=== PATIENT | male | born 1960 | race Caucasian/White ===

== ENCOUNTER → 2016-05-01 | Outpatient (CLI) | payer OTHER ==
--- NOTE | 2016-05-01 16:18 | CT ---
EXAMINATION TYPE: CT ChestAbdPelvis w con DATE OF EXAM: 05/01/2016 4:05 PM COMPARISON: 12/13/2015, 07/23/2015 HISTORY: Colon cancer follow-up exam CT DLP: 1843.6 mGycm Automated exposure control for dose reduction was used. CONTRAST: CT scan of the chest, abdomen and pelvis is performed with Oral Contrast and with IV Contrast, patien t injected with 100 mL of Omnipaque 300. FINDINGS: LUNGS: The lungs are grossly clear, there is no concerning parenchymal mass or nodule identified. T here is no pleural effusion or pneumothorax seen. The tracheobronchial tree is patent. MEDIASTINUM: There are no greater than 1 cm hilar or mediastinal lymph nodes. No pericardial effusi on is seen. OTHER: No additional significant abnormality is seen. LIVER/GB: No significant abnormality is appreciated. PANCREAS: No significant abnormality is seen. SPLEEN: No significant abnormality is seen. ADRENALS: No significant abnormality is seen. KIDNEYS: Tiny hypodensity involving the right kidney too small to characterize. There is no hydroneph rosis. However, there does appear to be a 2 mm calcification within the distal ureter at the level of the right UVJ. BOWEL: No significant abnormality is seen. Localized narrowing of the rectosigmoid junction may be r elated to incomplete distention correlate clinically. Postsurgical changes seen within the sigmoid co jah REPRODUCTIVE ORGANS: No gross abnormality seen. LYMPH NODES: No greater than 1 cm abdominal or pelvic lymph nodes are appreciated. OSSEOUS STRUCTURES: Stable sclerosis involving the S1 vertebral body. Correlate for sacroiliitis. Mil d hypertrophic change of the spine with areas of degenerative disc disease.. OTHER: Soft tissue lipoma along the right flank adjacent to the left rib. Atherosclerotic change of t he aorta noted. Persistent increased attenuation in the periumbilical region which may relate to post operative scar or small seroma. Correlate for infectious etiology. Prostate gland is mildly prominent in size. IMPRESSION: 1. 2 mm right UVJ calcification with no significant hydronephrosis. 2. No evidence of metastasis or recurrent neoplasm 3. Soft tissue attenuation area of previous umbilical hernia may be related to postoperative scar or small seroma. Infectious etiology not entirely excluded correlate clinically. 4. Localized mild wall thickening in the distal sigmoid colon most likely related to incomplete discu ssed distention. Correlate clinically.
== END | disposition home or self-care (01) ==
LOC: RADCTMAIN 15:30
PROVIDERS: ATTEND Internal Medicine Hematology & Oncology
DX: C18.7 Malignant neoplasm of sigmoid colon (principal); N28.89 Other specified disorders of kidney and ureter
CPT/HCPCS: 71260; 74177; Q9967

== ENCOUNTER → 2016-07-08 | Outpatient (CLI) | payer OTHER ==
[2016-07-08 07:52] LABS: Basophils % (A) 0 %; CH 30.7; CHCM 34.7; Eosinophils # (A) 0.1 k/uL (0-0.7); Eosinophils % (A) 2 %; HCT 50.3 % (39.0-53.0); HDW 2.88; HGB 17.1 gm/dL (13.0-17.5); Luc # (Auto) 0.19; Luc % (Auto) 3; Lymphocytes # (A) 1.7 k/uL (1.0-4.8); Lymphocytes % (A) 29 %; MCH 30.3 pg (25.0-35.0); MCHC 34.1 g/dL (31.0-37.0); MCV 88.8 fL (80.0-100.0); Mean Platelet Volume 7.5; Monocytes # (A) 0.5 k/uL (0-1.0); Monocytes % (A) 8 %; Neutrophils # (A) 3.3 k/uL (1.3-7.7); Neutrophils % (A) 57 %; RBC 5.66 m/uL (4.30-5.90); RDW 13.5 % (11.5-15.5); WBC 5.8 k/uL (3.8-10.6); WBC (Perox) 5.85
[2016-07-08 08:05] LABS: ALT 46 U/L (21-72); AST 40 U/L (17-59); Alkaline Phosphatase 63 U/L (38-126); Anion Gap 12 mmol/L; Blood Urea Nitrogen 21 mg/dL (9-20); Calcium 9.4 mg/dL (8.4-10.2); Carbon Dioxide 28 mmol/L (22-30); Chloride 104 mmol/L (98-107); Cholesterol 146 mg/dL (<200); Glucose 109 mg/dL (74-99); HDL Cholesterol 37 mg/dL (40-60); Non-African American GFR(MDRD) >60 (>60 ml/min/1.73 sqM); Sodium 144 mmol/L (137-145); Total Bilirubin 0.7 mg/dL (0.2-1.3); Total Protein 7.5 g/dL (6.3-8.2); Triglycerides 143 mg/dL (<150)
[2016-07-08 08:50] LABS: Hepatitis C Virus IgG Index 0.03
[2016-07-08 08:53] LABS: Hepatitis C Virus IgG Ab Negative (Negative)
[2016-07-08 10:45] LABS: Prostate Specific Antigen 2.81 ng/mL (0.00-4.00)
== END | disposition home or self-care (01) ==
LOC: LABWHC1 06:33
PROVIDERS: ATTEND Family Medicine
DX: E78.5 Hyperlipidemia, unspecified (principal); Z12.5 Encounter for screening for malignant neoplasm of prostate; Z13.9 Encounter for screening, unspecified
CPT/HCPCS: 36415; 80053; 80061; 84153; 84443; 85025; 86803

== ENCOUNTER → 2016-09-03 | Outpatient (CLI) | payer OTHER ==
--- NOTE | 2016-09-04 08:19 | CT ---
EXAMINATION TYPE: CT ChestAbdPelvis w con DATE OF EXAM: 09/03/2016 5:34 PM COMPARISON: CT cap May 01, 2016 HISTORY: Follow up colon cancer. No complaints at time of service CT DLP: 2264 mGycm. Automated Exposure Control for Dose Reduction was Utilized. CONTRAST: CT scan of the thorax, abdomen and pelvis is performed with IV Contrast, patient injected with 100 mL of Omnipaque 300. FINDINGS: LUNGS: The lungs are grossly clear, there is no concerning parenchymal mass or nodule identified. T here is no pleural effusion or pneumothorax seen. The tracheobronchial tree is patent. MEDIASTINUM: There are no greater than 1 cm hilar or mediastinal lymph nodes. No cardiomegaly or pe ricardial effusion is seen. OTHER: No additional significant abnormality is seen. LIVER/GB: No significant abnormality is appreciated. PANCREAS: No significant abnormality is seen. SPLEEN: No significant abnormality is seen. ADRENALS: No significant abnormality is seen. KIDNEYS: No significant abnormality is seen. BOWEL: No suspicious small or large bowel dilatation is present. Surgical sutures are redemonstrated at level of the sigmoid rectal colon near axial image 111. GENITAL ORGANS: Central zone calcifications are seen in slightly prominent prostate gland. LYMPH NODES: No greater than 1cm abdominal or pelvic lymph nodes are appreciated. OSSEOUS STRUCTURES: Stable sclerosis involving superior L1 endplate OTHER: Anterior vertical scar from umbilicus extending inferiorly is redemonstrated. There is small lipoma in the right posterior lateral lower rib on axial image 74 redemonstrated. Mild atherosclerotic change of distal abdominal aorta extending into pelvic branch vessels is identif ied. IMPRESSION: No new suspicious mass or adenopathy is seen to suggest neoplastic recurrence.
== END | disposition home or self-care (01) ==
LOC: RADCTMAIN 17:10
PROVIDERS: ATTEND Internal Medicine Hematology & Oncology
DX: C18.7 Malignant neoplasm of sigmoid colon (principal)
CPT/HCPCS: 71260; 74177; Q9967

== ENCOUNTER → 2017-08-17 | Outpatient (CLI) | payer OTHER ==
--- NOTE | 2017-08-17 22:17 | CT ---
EXAMINATION TYPE: CT ChestAbdPelvis w con DATE OF EXAM: 08/17/2017 COMPARISON: 02/16/2017 and 09/03/2016 HISTORY: 57-year-old male Observation for mets. Hx of colon CA TECHNIQUE: Contiguous axial scanning of the chest, abdomen, and pelvis performed with IV Contrast, pa tient injected with 100 mL of Isovue 300. Delayed images through the kidneys were obtained. Coronal/s agittal reconstructions performed. CT DLP: 2502.8 mGycm Automated exposure control for dose reduction was used. FINDINGS: Chest: Heart is normal size without pericardial effusion. Aorta normal caliber with the chart vessel branching anatomy. No thoracic lymphadenopathy by CT size criteria. Stringy atelectasis peripheral left knee. No consolidation or pleural effusion. ABDOMEN: Tiny hiatal hernia. Tiny 9 mm lesion in the mid liver shows late arterial phase enhancement equilibrates on the delayed k idney images as noted previously. This is stable from 09/03/2016. No new liver lesions. No biliary ductal dilatation. Gallbladder, adrenal glands, left kidney, spleen, and pancreas show no gross abnormality. 2 tiny subcentimeter hypodensities within the upper pole right kidney are redemonstrated, too small f or accurate CT characterization, likely cysts. The anterior lesion now measures 9 mm versus 7 mm, pre viously. It had measured 27 mm back on 09/03/2016 as well. Prominent large 1.1 cm portacaval lymph node is unchanged. No mesenteric or retroperitoneal lymphaden opathy. Mild to moderate atherosclerotic calcification throughout the infrarenal abdominal aorta. Redemonstrated supraumbilical rectus diastases measuring 6.5 cm wide containing bulging omental fat 0 .1 cm AP dimension. Similar to 02/16/2017 but enlarged from 09/03/2016. Scattered mild to moderate stool without pericolonic inflammatory change. Staple line from prior mid to distal sigmoid resection and re-anastomosis redemonstrated. No dilated small bowel, free fluid, or free air. Pelvis: Bladder urine distended. Prostate gland enlargement 6.3 cm wide. No abnormal fluid collection in the pelvis or pelvic lymphadenopathy. Bones: No osseous destructive process. Incidental 4.1 cm lipoma involving the right external oblique muscula ture lower thorax. IMPRESSION: 1. REDEMONSTRATED 9 MM FOCUS OF LATE ARTERIAL PHASE ENHANCEMENT IN THE MID LIVER. AGAIN, THIS EQUILIB RATES ON THE DELAYED KIDNEY IMAGES AND IS STABLE FROM 09/03/2016. SMALL AREA OF VASCULAR SHUNTING OR F LASH FILLING HEMANGIOMA REMAINS THE FAVORED DIFFERENTIAL. STABILITY FOR NEARLY A YEAR SUGGESTS A DAVID GN ETIOLOGY. 2. PRIOR RESECTION AND RE-ANASTOMOSIS MID TO DISTAL SIGMOID COLON. NO EVIDENCE FOR METASTATIC DISEASE . 3. STABLE PROSTATOMEGALY AND SUPRAUMBILICAL RECTUS DIASTASES.
== END | disposition home or self-care (01) ==
LOC: RADCTMAIN 15:20
PROVIDERS: ATTEND Internal Medicine Hematology & Oncology
DX: C18.7 Malignant neoplasm of sigmoid colon (principal); N40.0 Benign prostatic hyperplasia without lower urinary tract symptoms; Q79.59 Other congenital malformations of abdominal wall
CPT/HCPCS: 71260; 74177; Q9967

== ENCOUNTER → 2018-02-15 | Outpatient (CLI) | payer OTHER ==
--- NOTE | 2018-02-16 08:59 | CT ---
EXAMINATION TYPE: CT ChestAbdPelvis w con DATE OF EXAM: 02/15/2018 COMPARISON: 08/17/2017 HISTORY: Follow up colon cancer. CT DLP: 2573.4 mGycm CONTRAST: CT scan of the chest, abdomen and pelvis is performed with Oral Contrast and with IV Contrast, patien t injected with 100 mL of Isovue M300. CT Chest: LUNGS: Strandy basilar atelectasis or parenchymal scarring. No evidence of pulmonary nodule or mass. No infiltrate or volume loss. No pleural effusion detected. MEDIASTINUM: Thoracic aorta is of normal caliber. The heart is not enlarged. Enlargement paratrache al lymph node measures 1.9 cm versus 2.1 cm. HILAR STRUCTURES: No evidence for mass. No hilar adenopathy is appreciated. OTHER: No significant abnormality. CONTRAST CT ABDOMEN AND PELVIS FINDINGS: LIVER/GB: No calcified gallstones. Again noted is a 9 mm focus of arterial phase enhancement mid li coreen which fills in on delayed images and may reflect hemangioma. No new lesions detected. Biliary elisa e is of normal caliber. Mild fatty hepatic infiltration noted. PANCREAS: No inflammation. No distinct mass. SPLEEN: No splenic enlargement. No lesion seen. ADRENALS: No nodule. No thickening. KIDNEYS/BLADDER: No hydronephrosis. No nephrolithiasis. No distinct renal mass. BOWEL: Sigmoid resection. No evidence for recurrent or residual disease. Normal appendix. Normal bow el caliber. No inflammation. GENITAL ORGANS: Prostate enlargement and underlying calcifications. LYMPH NODES: No greater than 1cm abdominal or pelvic lymph nodes are appreciated. AORTA: No significant abnormality. OSSEOUS STRUCTURES: No significant abnormality is seen. OTHER: [place] fat containing ventral hernia measures 6.4 cm in greatest transverse dimension. IMPRESSION: 1. No evidence for metastatic disease or recurrent disease at this time. 2. Probable hepatic hemangioma. 3 fat-containing ventral hernia is stable.
== END | disposition home or self-care (01) ==
LOC: RADCTMAIN 16:08
PROVIDERS: ATTEND Internal Medicine Hematology & Oncology
DX: C18.7 Malignant neoplasm of sigmoid colon (principal); K43.9 Ventral hernia without obstruction or gangrene
CPT/HCPCS: 71260; 74177; Q9967

== ENCOUNTER → 2018-02-17 | Outpatient (CLI) | payer OTHER ==
[2018-02-17 06:57] LABS: HCT 48.2 % (39.0-53.0); HGB 16.7 gm/dL (13.0-17.5); MCH 30.6 pg (25.0-35.0); MCHC 34.7 g/dL (31.0-37.0); MCV 88.1 fL (80.0-100.0); Mean Platelet Volume 7.3; Platelet Count 174 k/uL (150-450); RBC 5.47 m/uL (4.30-5.90); RDW 13.5 % (11.5-15.5)
[2018-02-17 11:44] LABS: Albumin 4.3 g/dL (3.80-4.90); Albumin/Globulin Ratio 2.05 (1.20-2.10); Calcium 9.1 mg/dL (8.7-10.3); Globulin 2.1 g/dL (2.1-3.7); LDL Cholesterol,Calculated 68.2 mg/dL (0.0-131.0); Potassium 4.4 mmol/L (3.5-5.5); Total Bilirubin 0.6 mg/dL (0.2-1.2); Total Protein 6.4 g/dL (6.2-8.2); VLDL Calculation 30.8 mg/dL (5.00-40.00)
[2018-02-17 15:02] LABS: Hemoglobin A1C 6.2 % (4.0-6.0)
== END | disposition home or self-care (01) ==
LOC: LABWHC1 06:32
PROVIDERS: ATTEND Midwife
DX: R73.9 Hyperglycemia, unspecified (principal)
CPT/HCPCS: 36415; 80053; 80061; 83036; 84443; 85027

== ENCOUNTER 2018-04-07 11:10 | Day surgery (SDC) | payer OTHER ==
--- NOTE | 2018-04-07 10:09 | P.GSHP ---
History of Present Illness H&P Date: 04/07/18 CHIEF COMPLAINT: Colon screen HISTORY OF PRESENT ILLNESS: The patient is a 57-year-old male who presents for colon screen. Lower endoscopy was offered for further evaluation and management. PAST MEDICAL HISTORY: Please see list. PAST SURGICAL HISTORY: Please see list. MEDICATIONS: Please see list. ALLERGIES: Please see list. SOCIAL HISTORY: No illicit drug use FAMILY HISTORY: No reports of Crohn disease or ulcerative colitis. REVIEW OF ORGAN SYSTEMS: CONSTITUTIONAL: No reports of fevers or chills. PHYSICAL EXAM: VITAL SIGNS: Stable GENERAL: Well-developed pleasant in no acute distress. HEENT: No scleral icterus. Extraocular movements grossly intact. Moist buccal mucosa. NECK: Supple without lymphadenopathy. CHEST: Unlabored respirations. Equal bilateral excursions. CARDIOVASCULAR: Regular rate and rhythm. Distal 2+ pulses. ABDOMEN: Soft, nontender, nondistended. MUSCULOSKELETAL: No clubbing, cyanosis, or edema. ASSESSMENT: 1. Colon screen. PLAN: 1. 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), hx skin cancer History of Any Multi-Drug Resistant Organisms: None Reported Past Surgical History: Bowel Resection Additional Past Surgical History / Comment(s): skin lesion removal, colonoscopy , PORT A CATH, port a cath removed, ventral hernia repair Past Anesthesia/Blood Transfusion Reactions: Postoperative Nausea & Vomiting ( PONV) Additional Past Anesthesia/Blood Transfusion Reaction / Comment(s): with 1st colonoscopy Past Psychological History: No Psychological Hx Reported Smoking Status: Never smoker Past Alcohol Use History: Occasional Past Drug Use History: None Reported - Past Family History Mother Family Medical History: No Reported History Medications and Allergies Home Medications Medication Instructions Recorded Confirmed Type Lisinopril [Zestril] 10 mg PO QAM 01/13/14 04/05/18 History Rosuvastatin Calcium [Crestor] 40 mg PO QAM 01/13/14 04/05/18 History Atenolol/Chlorthalidone 0.5 tab PO QAM 08/31/14 04/05/18 History [Atenolol-Chlorthalidone 100-25] Allergies Allergy/AdvReac Type Severity Reaction Status Date / Time tape AdvReac Mild Rash/Hives Uncoded 02/04/16 12:53
[~2018-04-07 11:10] MED LIST: DEXAMETHASONE SOD PHOSPHATE 10 MG/ML 1 ML VIAL IV ONE; HYDROmorphone 0.5 MG/0.5 ML SYRINGE IVP PRN; LACTATED RINGERS 1,000 ML IV SCH; LIDOCAINE 1% 20 ML VIAL (10MG/ML) FOR IV START INTRADERMA PRN; ONDANSETRON 4 MG/2 ML VIAL IVP ONE; SCOPOLAMINE 1.5MG/72HR PATCH TRANSDERM ONE
[2018-04-07 11:34] VITALS: RESP 18; TEMP 97.9
[2018-04-07] MEDS ORDERED: PROPOFOL 10 MG/ML 20 ML VIAL IV ONE (11:48)
[2018-04-07] MEDS ORDERED: LIDOCAINE 1% INJ 10MG/ML (20 ML MDV) ONE (11:48)
--- NOTE | 2018-04-07 12:14 | P.PCN ---
Date of Procedure: 04/07/18 Description of Procedure: PREOPERATIVE DIAGNOSIS: History of colon cancer with colon resection Colon cancer surveillance POSTOPERATIVE DIAGNOSIS: History of colon cancer with sigmoid colon resection Colon cancer surveillance Multiple tubular adenomas throughout the colon OPERATION: Colonoscopy to the ileocecal valve and appendiceal orifice. Colonoscopy with multiple hot snare polypectomies SURGEON: Rashmi Quintanilla MD. ANESTHESIA: MAC. INDICATIONS: The patient is a 57-year-old male with previous history of colon cancer treated with sigmoid resection. He presents for colonoscopy surveillance. Benefits and risks were described and informed consent was obtained. DESCRIPTION OF PROCEDURE: The patient had undergone Gatorade, MiraLAX and Dulcolax prep. He had been brought into the operating room and laid in the left lateral decubitus position. After adequate intravenous sedation, the rectum was examined with 2% lidocaine jelly. No external hemorrhoids were encountered. The rectal tone was within normal limits. The prostate was within normal limits. No lesions were palpated in the rectal vault. An Olympus colonoscope was advanced until the ileocecal valve and appendiceal orifice were clearly viewed. The prep was fair with visualization of the mucosal folds. The scope was removed with visualization of each mucosal fold. No scattered diverticulosis was encountered. Multiple colonic polyps were snare polypectomy. No evidence of focal colitis was found. Retroflexion of the scope demonstrated no internal hemorrhoids. The colon was desufflated. The patient had tolerated the procedure well. Withdrawal time was over 6 minutes. FINDINGS: No internal hemorrhoids No external hemorrhoids No arteriovenous malformations No sigmoid diverticulosis Removal of 3 polyps: - Snare polypectomy 20 cm from the anal verge, 5 mm tubulovillous adenoma polyp. - Snare polypectomy 65 cm from the anal verge, 4 mm flat villous adenoma polyp. - Snare polypectomy 70 cm from the anal verge, 5 mm flat villous adenoma polyp. No focal colitis. RECOMMENDATIONS: Given severity of tubular adenomas, recommend repeat colonoscopy 1 year, 2018 Plan - Discharge Summary Discharge Rx Participant: No New Discharge Prescriptions: No Action Rosuvastatin Calcium [Crestor] 40 mg PO QAM Lisinopril [Zestril] 10 mg PO QAM Atenolol/Chlorthalidone [Atenolol-Chlorthalidone 100-25] 0.5 tab PO QAM Discharge Medication List Lisinopril [Zestril] 10 mg PO QAM 01/13/14 [History] Rosuvastatin Calcium [Crestor] 40 mg PO QAM 01/13/14 [History] Atenolol/Chlorthalidone [Atenolol-Chlorthalidone 100-25] 0.5 tab PO QAM [History] Follow up Appointment(s)/Referral(s): Rashmi Quintanilla MD [STAFF PHYSICIAN] - As Needed Patient Instructions/Handouts: *Surgery [facility] - (Anesthesia) Endoscopy Discharge Instructions, Colorectal Polyps (GEN), Colonoscopy (GEN) Activity/Diet/Wound Care/Special Instructions: Repeat colonoscopy in one year, 2019 Discharge Disposition: HOME SELF-CARE
[2018-04-07 12:43] VITALS: BP 139/92; PULSE 77
--- NOTE | 2018-04-13 10:49 | CDI ---
Outpatient Documentation Clarification Form Date: 04/13/2018 CDS/Putty Maker Name: Sy Barton Phone: If any questions, call Delicia Carpio Dry Drug Worker at [phone] Patient Name: Tito Us Admit Date: 04/07/2018 Discharge Date: 04/07/2018 ATTENTION: The [facility] Coding Staff appreciate your assistance in clarifying documentation. Please respond to the clarification below the line at the bottom and electronically sign. The [facility] Coding staff will review the response and follow-up if needed. Please note: Queries are made part of the Legal Health Record. If you have any questions, please contact the Dry Drug Worker. Dear Dr. Caraballo, As per operative report snare polypectomy was performed at 70cm, 65cm, 20cm from colon. Please clarify the anatomical locations of polyps excised from: Colon polyp at 70 cm Colon polyp at 65cm Colon polyp at 20cm Thank you for your kind consideration. PLEASE SEE AMENDED REPORT, 04/14/18 @ 13:[address] [facility]
== END 2018-04-07 13:00 | disposition home or self-care (01) ==
LOC: ORWHC2ENDO 11:10
PROVIDERS: ATTEND Surgery Plastic and Reconstructive Surgery
DX: Z12.11 Encounter for screening for malignant neoplasm of colon (principal); D12.4 Benign neoplasm of descending colon; D12.5 Benign neoplasm of sigmoid colon; I10 Essential (primary) hypertension; E78.5 Hyperlipidemia, unspecified; Z85.038 Personal history of other malignant neoplasm of large intestine; Z90.49 Acquired absence of other specified parts of digestive tract; Z79.899 Other long term (current) drug therapy; Z91.048 Other nonmedicinal substance allergy status
CPT/HCPCS: 88305; 45385; J2001; J2704

== ENCOUNTER → 2018-08-16 | Outpatient (CLI) | payer OTHER ==
[2018-08-16 16:47] LABS: Blood Urea Nitrogen 21 mg/dL (9-20)
--- NOTE | 2018-08-17 08:41 | CT ---
EXAMINATION TYPE: CT ChestAbdPelvis w con DATE OF EXAM: 08/16/2018 COMPARISON: 02/15/2018 and 08/17/2017 HISTORY: 58-year-old male follow up for colon cancer. TECHNIQUE: Contiguous axial scanning of the chest, abdomen, and pelvis performed with IV Contrast, pa tient injected with 100ml mL of Isovue 300. Delayed images through the kidneys were obtained. Coronal /sagittal reconstructions performed. CT DLP: 2709.9 mGycm Automated exposure control for dose reduction was used. FINDINGS: CHEST: Bilateral size without pericardial effusion. Aorta normal caliber with conventional arch was a branching anatomy. Stable prominent but nonenlarged 7 mm AP window lymph node. No thoracic lymphadenopathy by CT size cr iteria. Trace bilateral gynecomastia. Similar strandy scarring at the peripheral left base. No consolidation or pleural effusion. ABDOMEN: Liver mildly enlarged at 18.5 cm. Previous 9 mm focus of hypervascularity mid liver, axial image 55 r emains unchanged, equilibrium and delayed kidney images suggesting flash filling hemangioma or vascul ar shunting. A similar area now seen in the posterior right hepatic dome, axial 47. Again, this equil ibrates on delayed kidney images suggesting vascular shunting or flash filling hemangioma venous syst em is patent. No biliary ductal dilatation. Portal venous system is patent. Adrenal glands, kidneys, spleen, and pancreas within normal limits. Tiny lateral splenule. Moderate atherosclerotic calcifications infrarenal abdominal aorta and mild within the iliac arteries . No dilated small bowel, free fluid, or free air. No mesenteric or retroperitoneal lymphadenopathy. Oral contrast progressed to the splenic flexure. Moderate stool burden. Staple line along the mid to distal sigmoid. Redemonstrated supraumbilical ventral abdominal wall hernia containing omental fat in the hernia sac measuring 7.5 cm wide, slightly larger from 6.4 cm, previously. Pelvis: Prostate gland is enlarged 6.1 cm wide with central calcifications. No abnormal fluid collection in t he pelvis or pelvic lymphadenopathy. Bladder partially distended. Bones: Mild facet arthropathy lower lumbar spine. No osseous destructive process. Moderate degenerative disc disease mid thoracic spine. IMPRESSION: 1. A COUPLE HYPERVASCULAR FOCI IN THE LIVER MEASURING UP TO 9 MM SUGGESTING FLASH FILLING HEMANGIOMAS OR VASCULAR SHUNTING. ONE OF THESE IS STABLE . THE OTHER WAS PRESENT ON THE PRIOR STUDY IN RETROSPEC T. THE ENHANCEMENT CHARACTERISTICS ARE NOT COMPATIBLE WITH COLON CANCER METASTASES. NO DEFINITE SUSPI CIOUS LIVER LESION IS SEEN. 2. PRIOR RESECTION WITH REANASTOMOSIS MID TO DISTAL SIGMOID. 3. FAT-CONTAINING SUPRAUMBILICAL VENTRAL ABDOMINAL WALL HERNIA SLIGHTLY LARGER NOW MEASURING 7.5 CM W DOREEN VERSUS 6.4 CM, PREVIOUSLY
== END | disposition home or self-care (01) ==
LOC: RADCTMAIN 15:55
PROVIDERS: ATTEND Internal Medicine Hematology & Oncology
DX: C18.7 Malignant neoplasm of sigmoid colon (principal); K43.9 Ventral hernia without obstruction or gangrene; R93.2 Abnormal findings on diagnostic imaging of liver and biliary tract
CPT/HCPCS: 82565; 84520; 71260; 74177; 36415; Q9967

== ENCOUNTER → 2018-08-25 | Outpatient (CLI) | payer OTHER ==
[2018-08-25 07:00] LABS: Basophils % (A) 1 %; Eosinophils # (A) 0.1 k/uL (0-0.7); Eosinophils % (A) 2 %; HCT 49.4 % (39.0-53.0); HGB 16.5 gm/dL (13.0-17.5); Lymphocytes # (A) 1.6 k/uL (1.0-4.8); Lymphocytes % (A) 25 %; MCH 29.4 pg (25.0-35.0); MCHC 33.5 g/dL (31.0-37.0); MCV 87.8 fL (80.0-100.0); Mean Platelet Volume 7.6; Monocytes # (A) 0.5 k/uL (0-1.0); Monocytes % (A) 8 %; Neutrophils # (A) 3.9 k/uL (1.3-7.7); Neutrophils % (A) 63 %; Platelet Count 177 k/uL (150-450); RBC 5.63 m/uL (4.30-5.90); RDW 14.8 % (11.5-15.5); WBC 6.3 k/uL (3.8-10.6)
[2018-08-25 14:31] LABS: Hemoglobin A1C 6.4 % (4.0-6.0)
== END | disposition home or self-care (01) ==
LOC: LABWHC1 06:40
PROVIDERS: ATTEND Physician Assistant
DX: E78.5 Hyperlipidemia, unspecified (principal); E55.9 Vitamin D deficiency, unspecified; I10 Essential (primary) hypertension; R73.9 Hyperglycemia, unspecified; Z12.5 Encounter for screening for malignant neoplasm of prostate
CPT/HCPCS: 36415; 80061; 82306; 83036; 84153; 85025

== ENCOUNTER 2019-01-26 06:29 | Day surgery (SDC) | payer OTHER ==
[2019-01-26 06:45] VITALS: RESP 16; TEMP 97.8
[2019-01-26] MEDS ORDERED: LACTATED RINGERS 1,000 ML IV ONE (06:52)
[2019-01-26] MEDS ORDERED: ONDANSETRON 4 MG/2 ML VIAL IVP ONE (06:53)
[2019-01-26] MEDS ORDERED: METOCLOPRAMIDE 5 MG/ML 2 ML VIAL IVP ONE (06:54)
[2019-01-26] MEDS ORDERED: PROPOFOL 10 MG/ML 20 ML VIAL IV ONE (07:05)
--- NOTE | 2019-01-26 07:27 | P.GSHP ---
History of Present Illness H&P Date: 01/26/19 CHIEF COMPLAINT: Colon screen HISTORY OF PRESENT ILLNESS: The patient is a 58-year-old male who presents for colon screen. Lower endoscopy was offered for further evaluation and management. PAST MEDICAL HISTORY: Please see list. PAST SURGICAL HISTORY: Please see list. MEDICATIONS: Please see list. ALLERGIES: Please see list. SOCIAL HISTORY: No illicit drug use FAMILY HISTORY: No reports of Crohn disease or ulcerative colitis. REVIEW OF ORGAN SYSTEMS: CONSTITUTIONAL: No reports of fevers or chills. PHYSICAL EXAM: VITAL SIGNS: Stable GENERAL: Well-developed pleasant in no acute distress. HEENT: No scleral icterus. Extraocular movements grossly intact. Moist buccal mucosa. NECK: Supple without lymphadenopathy. CHEST: Unlabored respirations. Equal bilateral excursions. CARDIOVASCULAR: Regular rate and rhythm. Distal 2+ pulses. ABDOMEN: Soft, nontender, nondistended. MUSCULOSKELETAL: No clubbing, cyanosis, or edema. ASSESSMENT: 1. Colon screen. PLAN: 1. Recommend proceeding with a lower endoscopy Past Medical History Past Medical History: Cancer, Hyperlipidemia, Hypertension Additional Past Medical History / Comment(s): hx COLON CANCER, NEUROPATHY in fingers and toes, hx skin cancer History of Any Multi-Drug Resistant Organisms: None Reported Past Surgical History: Bowel Resection Additional Past Surgical History / Comment(s): skin lesion removal, colonoscopy, PORT A CATH, port a cath removed, ventral hernia repair Past Anesthesia/Blood Transfusion Reactions: No Reported Reaction Additional Past Anesthesia/Blood Transfusion Reaction / Comment(s): with 1st colonoscopy Past Psychological History: No Psychological Hx Reported Smoking Status: Never smoker Past Alcohol Use History: Occasional Past Drug Use History: None Reported - Past Family History Mother Family Medical History: No Reported History Medications and Allergies Home Medications Medication Instructions Recorded Confirmed Type Lisinopril [Zestril] 10 mg PO QAM 01/13/14 01/26/19 History Rosuvastatin Calcium [Crestor] 40 mg PO QAM 01/13/14 01/26/19 History Atenolol/Chlorthalidone 0.5 tab PO QAM 08/31/14 01/26/19 History [Atenolol-Chlorthalidone 100-25] Allergies Allergy/AdvReac Type Severity Reaction Status Date / Time tape AdvReac Mild Rash/Hives Uncoded 01/26/19 06:41 Surgical - Exam Vital Signs Temp Pulse Resp BP Pulse Ox 97.8 F 74 16 140/78 96 01/26/19 06:40 01/26/19 06:40 01/26/19 06:40 01/26/19 06:40 01/26/19 06:40
--- NOTE | 2019-01-26 07:31 | P.PCN ---
Date of Procedure: 01/26/19 Description of Procedure: PREOPERATIVE DIAGNOSIS: History of colon cancer with colon resection Colon cancer surveillance POSTOPERATIVE DIAGNOSIS: History of colon cancer with sigmoid colon resection Colon cancer surveillance Ileocecal valve polyp OPERATION: Colonoscopy to the ileocecal valve and appendiceal orifice. Colonoscopy with cold forceps biopsy SURGEON: Rashmi Quintanilla MD. ANESTHESIA: MAC. INDICATIONS: The patient is a 58-year-old male with previous history of colon cancer treated with sigmoid resection. He presents for colonoscopy surveillance. Benefits and risks were described and informed consent was obtained. DESCRIPTION OF PROCEDURE: The patient had undergone Suprep. He had been brought into the operating room and laid in the left lateral decubitus position. After adequate intravenous sedation, the rectum was examined with 2% lidocaine jelly. No external hemorrhoids were encountered. The rectal tone was within normal limits. The prostate fossa was within normal limits. No lesions were palpated in the rectal vault. An Olympus colonoscope was advanced until the ileocecal valve and appendiceal orifice were clearly viewed. The prep was good. The scope was removed with visualization of each mucosal fold. No scattered diverticulosis was encountered. At ileocecal valve, 3 mm flat villous adenoma with cold forceps biopsy. No evidence of focal colitis was found. Retroflexion of the scope demonstrated no internal hemorrhoids. The colon was desufflated. The patie nt had tolerated the procedure well. Withdrawal time was over 6 minutes. FINDINGS: Aronchick preparation quality scale 1 (1-5) No internal hemorrhoids No external hemorrhoids No arteriovenous malformations No sigmoid diverticulosis Removal of 1 polyps: - Cold forceps biopsy ileocecal valve, 3 mm tubulovillous adenoma polyp. No focal colitis. RECOMMENDATIONS: Repeat colonoscopy 2 years, 2020 Plan - Discharge Summary Discharge Rx Participant: No New Discharge Prescriptions: No Action Rosuvastatin Calcium [Crestor] 40 mg PO QAM Lisinopril [Zestril] 10 mg PO QAM Atenolol/Chlorthalidone [Atenolol-Chlorthalidone 100-25] 0.5 tab PO QAM Discharge Medication List Lisinopril [Zestril] 10 mg PO QAM 01/13/14 [History] Rosuvastatin Calcium [Crestor] 40 mg PO QAM 01/13/14 [History] Atenolol/Chlorthalidone [Atenolol-Chlorthalidone 100-25] 0.5 tab PO QAM 08/31/14 [History] Follow up Appointment(s)/Referral(s): Rashmi Quintanilla MD [STAFF PHYSICIAN] - As Needed Patient Instructions/Handouts: *[facility] - (Anesthesia) Endoscopy Discharge Instructions, Colonoscopy (GEN) Activity/Diet/Wound Care/Special Instructions: Repeat colonoscopy 2 years, 2020 Discharge Disposition: HOME SELF-CARE
[2019-01-26 07:45] VITALS: BP 108/74; PULSE 75
== END 2019-01-26 08:00 | disposition home or self-care (01) ==
LOC: ORWHC2ENDO 06:29
PROVIDERS: ATTEND Surgery Plastic and Reconstructive Surgery
DX: Z12.11 Encounter for screening for malignant neoplasm of colon (principal); D12.0 Benign neoplasm of cecum; I10 Essential (primary) hypertension; E78.5 Hyperlipidemia, unspecified; G47.33 Obstructive sleep apnea (adult) (pediatric); Z85.038 Personal history of other malignant neoplasm of large intestine; Z90.49 Acquired absence of other specified parts of digestive tract; Z79.899 Other long term (current) drug therapy; Z91.048 Other nonmedicinal substance allergy status; Z85.828 Personal history of other malignant neoplasm of skin; Z98.890 Other specified postprocedural states
CPT/HCPCS: 88305; 45380; J2765; J2405; J2704

== ENCOUNTER → 2019-02-16 | Outpatient (CLI) | payer OTHER ==
--- NOTE | 2019-02-17 09:46 | CT ---
EXAMINATION TYPE: CT ChestAbdPelvis wo con DATE OF EXAM: 02/16/2019 COMPARISON: 08/16/2018 HISTORY: Colon cancer, observe for mets. CT DLP: 2006.1mGycm Unenhanced CT of the Chest, Abdomen and Pelvis Unenhanced CT of the chest ,abdomen and pelvis is performed. The lack of intravenous contrast limits evaluation of the solid and hollow viscera. Oral contrast: Yes CT Chest: LUNGS: The lungs are clear and free of infiltrate or atelectasis. No pulmonary nodule or mass is det ected. No pleural effusion or CT evidence of interstitial lung disease. MEDIASTINUM: Thoracic aorta is of normal caliber. The heart is not enlarged. No evidence for media stinal mass or adenopathy. HILAR STRUCTURES: No evidence for mass. No hilar adenopathy is appreciated. OTHER: None CONTRAST CT ABDOMEN AND PELVIS: LIVER/GB: No calcified gallstones. No space occupying hepatic lesion. Biliary tree is of normal ca liber. PANCREAS: No inflammation. No distinct mass. SPLEEN: No splenic enlargement. No lesion seen. ADRENALS: No nodule. No thickening. KIDNEYS/BLADDER: No hydronephrosis. No nephrolithiasis. No disctinct renal mass. BOWEL: Normal appendix. Normal bowel caliber. No inflammation. Postoperative changes of sigmoid res ection. No evidence for tumor recurrence at this time. GENITAL ORGANS: No gross abnormality. LYMPH NODES: No greater than 1cm abdominal or pelvic lymph nodes areappreciated. AORTA: No significant abnormality. OSSEOUS STRUCTURES: No significant abnormality is seen. OTHER: stable fat-containing supraumbilical hernia. IMPRESSION: 1. No evidence for metastatic disease or recurrent disease on this unenhanced study.
== END | disposition home or self-care (01) ==
LOC: RADCTMAIN 15:57
PROVIDERS: ATTEND Internal Medicine Hematology & Oncology
DX: C18.7 Malignant neoplasm of sigmoid colon (principal)
CPT/HCPCS: 71250; 74176; Q9967

== ENCOUNTER → 2019-03-22 | Outpatient (CLI) | payer OTHER ==
[2019-03-22 07:39] LABS: Basophils # (A) 0.1 k/uL (0-0.2); Basophils % (A) 1 %; Eosinophils # (A) 0.1 k/uL (0-0.7); Eosinophils % (A) 2 %; HCT 49.2 % (39.0-53.0); HGB 16.8 gm/dL (13.0-17.5); Lymphocytes # (A) 1.6 k/uL (1.0-4.8); Lymphocytes % (A) 24 %; MCH 30.6 pg (25.0-35.0); MCHC 34.2 g/dL (31.0-37.0); MCV 89.6 fL (80.0-100.0); Mean Platelet Volume 7.4; Monocytes # (A) 0.6 k/uL (0-1.0); Monocytes % (A) 9 %; Neutrophils # (A) 4.2 k/uL (1.3-7.7); Neutrophils % (A) 62 %; Platelet Count 177 k/uL (150-450); RBC 5.49 m/uL (4.30-5.90); RDW 13.3 % (11.5-15.5); WBC 6.7 k/uL (3.8-10.6)
[2019-03-22 11:38] LABS: African American GFR (CKD) 77.9 (60.0-200.0); Albumin 4.4 g/dL (3.80-4.90); Albumin/Globulin Ratio 2.1 (1.60-3.17); Anion Gap 6.4 mmol/L (4.00-12.00); Calcium 9.6 mg/dL (8.7-10.3); Carbon Dioxide 29.6 mmol/L (21.6-31.8); Chol/HDL Ratio 4.7; Globulin 2.1 g/dL (1.6-3.3); LDL Cholesterol,Calculated 74.4 mg/dL (0.0-131.0); Non-African American GFR(CKD) 67.2 (60.0-200.0); Potassium 4.6 mmol/L (3.5-5.5); Total Bilirubin 0.6 mg/dL (0.2-1.2); Total Protein 6.5 g/dL (6.2-8.2); VLDL Calculation 36.6 mg/dL (5.00-40.00)
[2019-03-22 11:46] LABS: T4, Free (Free Thyroxine) 1.2 ng/dL (0.80-1.80)
[2019-03-22 12:28] LABS: Hemoglobin A1C 6.4 % (4.0-6.0)
== END | disposition home or self-care (01) ==
LOC: LABWHC1 06:34
PROVIDERS: ATTEND Family Medicine
DX: E78.5 Hyperlipidemia, unspecified (principal); R73.9 Hyperglycemia, unspecified
CPT/HCPCS: 36415; 80053; 80061; 83036; 84439; 84443; 85025

== ENCOUNTER → 2019-08-31 | Outpatient (CLI) | payer OTHER ==
--- NOTE | 2019-08-31 17:49 | CT ---
EXAMINATION TYPE: CT ChestAbdPelvis w con DATE OF EXAM: 08/31/2019 INDICATION: follow up lung ca COMPARISON: 02/16/2019 CT DLP: 2526.3 mGycm CONTRAST: Performed with Oral Contrast and with IV Contrast, patient injected with 100 mL of Isovue 300. TECHNIQUE: Axial images at 5 mm thick sections. Reconstructed images in the coronal plane. Delayed images through the kidneys. FINDINGS: CT CHEST: Portion of the thyroid visualized is normal. No suspicious lung nodules or focal infiltrates are present. No enlarged mediastinal or hilar adenopathy is evident. The ascending aorta diameter at the level of the main pulmonary artery is 3.1 cm. The main pulmonary artery diameter at the bifurcation is 2.[address] ABDOMEN: Incidental note is made of a lipoma within the right oblique muscle note is made of anter ior abdominal wall hernias. A loop of bowel with contrast without evidence of obstruction is at the e dge of the hernia. Series 3 image 87 Liver: Normal Spleen: Normal Pancreas: Normal Adrenal glands: The adrenal glands are normal. Gallbladder: Normal Kidneys: No masses are evident. No hydronephrosis is present. No cysts are present. Delayed images were obtained through the kidneys, which remain unremarkable. Aorta: Vascular calcification is within the aorta. Inferior vena cava: Normal. CT PELVIS: Loops of bowel within the abdomen and pelvis are normal. There are loops of bowel which are incom pletely distended or lack oral contrast limiting their evaluation. Postsurgical changes are at the mi d sigmoid colon region Appendix: Not visualized. No suspicious dilated tubular structures or inflammatory changes are eviden t. Urinary bladder: Normal. Genitourinary structures: Prostate is prominent. Osseous structures: No suspicious lytic or sclerotic lesions. IMPRESSIONS: 1. No suspicious changes for metastatic colon cancer. 2. Anterior abdominal wall hernia containing nonobstructed loops of bowel.
== END | disposition home or self-care (01) ==
LOC: RADCTMAIN 10:41
PROVIDERS: ATTEND Internal Medicine Hematology & Oncology
DX: K43.9 Ventral hernia without obstruction or gangrene (principal); C18.7 Malignant neoplasm of sigmoid colon
CPT/HCPCS: 71260; 74177; Q9967

== ENCOUNTER → 2019-10-13 | Outpatient (CLI) | payer OTHER ==
--- NOTE | 2019-10-13 12:20 | XR ---
EXAMINATION TYPE: XR wrist complete LT DATE OF EXAM: 10/13/2019 CLINICAL HISTORY: Numbness and tingling. TECHNIQUE: Frontal, lateral, scaphoid, and oblique images of the left wrist are obtained. COMPARISON: None FINDINGS: There is no acute fracture/dislocation evident in the left wrist. Mild narrowing and spurr ing of base of first metacarpal. Mild triscaphe joint spurring and narrowing. The overlying soft tis hunter appears unremarkable. IMPRESSION: As above.
--- NOTE | 2019-10-13 12:21 | XR ---
EXAMINATION TYPE: XR elbow complete LT DATE OF EXAM: 10/13/2019 CLINICAL HISTORY: Numbness and tingling. TECHNIQUE: Frontal, lateral and oblique images of the left elbow are obtained. COMPARISON: None FINDINGS: There is no acute fracture/dislocation evident in the left elbow. No abnormal fat pad sig ns are seen. Mild spurring from the olecranon. The overlying soft tissue appears unremarkable. IMPRESSION: As above.
== END | disposition home or self-care (01) ==
LOC: RADXRMAIN 12:01
PROVIDERS: ATTEND Emergency Medicine
DX: M25.832 Other specified joint disorders, left wrist (principal); R20.9 Unspecified disturbances of skin sensation

== ENCOUNTER → 2019-11-04 | Outpatient (CLI) | payer OTHER ==
[2019-11-04 08:44] LABS: Basophils % (A) 1 %; Eosinophils # (A) 0.1 k/uL (0-0.7); Eosinophils % (A) 2 %; HCT 47.2 % (39.0-53.0); HGB 16.2 gm/dL (13.0-17.5); Lymphocytes # (A) 1.6 k/uL (1.0-4.8); Lymphocytes % (A) 25 %; MCH 30.4 pg (25.0-35.0); MCHC 34.4 g/dL (31.0-37.0); MCV 88.3 fL (80.0-100.0); Mean Platelet Volume 8.1; Monocytes # (A) 0.5 k/uL (0-1.0); Monocytes % (A) 8 %; Neutrophils % (A) 63 %; Platelet Count 169 k/uL (150-450); RBC 5.34 m/uL (4.30-5.90); RDW 13.4 % (11.5-15.5); WBC 6.4 k/uL (3.8-10.6)
[2019-11-04 17:25] LABS: African American GFR (CKD) 85.9 (60.0-200.0); Albumin 4.3 g/dL (3.80-4.90); Albumin/Globulin Ratio 1.95 (1.60-3.17); Anion Gap 5.3 mmol/L (4.00-12.00); Carbon Dioxide 27.7 mmol/L (21.6-31.8); Chol/HDL Ratio 4.41; Globulin 2.2 g/dL (1.6-3.3); LDL Cholesterol,Calculated 68.8 mg/dL (0.0-131.0); Non-African American GFR(CKD) 74.1 (60.0-200.0); Total Bilirubin 0.6 mg/dL (0.3-1.2); Total Protein 6.5 g/dL (6.2-8.2); VLDL Calculation 23.2 mg/dL (5.00-40.00)
[2019-11-04 17:33] LABS: Prostate Specific Antigen 2.5 ng/mL (0.0-3.5); T4, Free (Free Thyroxine) 1.3 ng/dL (0.80-1.80)
== END | disposition home or self-care (01) ==
LOC: LABWHC1 08:03
PROVIDERS: ATTEND Family Medicine
DX: Z00.00 Encounter for general adult medical examination without abnormal findings (principal); Z12.5 Encounter for screening for malignant neoplasm of prostate; Z20.9 Contact with and (suspected) exposure to unspecified communicable disease
CPT/HCPCS: 36415; 80053; 80061; 84153; 84439; 84443; 85025; 86803

== ENCOUNTER → 2020-10-15 | Outpatient (CLI) | payer OTHER ==
[2020-10-15 11:17] LABS: Basophils # (A) 0.04 X 10*3/uL (0.00-0.10); Basophils % (A) 0.6 %; Eosinophils # (A) 0.11 X 10*3/uL (0.04-0.35); Eosinophils % (A) 1.7 %; HCT 46.6 % (39.6-50.0); HGB 15.9 g/dL (13.0-17.0); Lymphocytes # (A) 1.42 X 10*3/uL (0.90-5.00); Lymphocytes % (A) 22.4 %; MCH 30.2 pg (27.0-32.0); MCHC 34.1 g/dL (32.0-37.0); MCV 88.6 fL (80.0-97.0); Monocytes # (A) 0.73 X 10*3/uL (0.20-1.00); Monocytes % (A) 11.5 %; Neutrophils # (A) 4.03 X 10*3/uL (1.80-7.70); Neutrophils % (A) 63.6 %; Platelet Count 167 X 10*3/uL (140-440); RBC 5.26 X 10*6/uL (4.40-5.60); RDW 13.2 % (11.5-14.5); WBC 6.34 X 10*3/uL (4.50-10.00)
[2020-10-15 11:55] LABS: African American GFR (CKD) 85.3 (60.0-200.0); Albumin 4.4 g/dL (3.80-4.90); Albumin/Globulin Ratio 1.91 (1.60-3.17); BUN/Creat Ratio 20.91 Ratio (12.00-20.00); Calcium 9.1 mg/dL (8.7-10.3); Chol/HDL Ratio 4.93; Globulin 2.3 g/dL (1.6-3.3); Non-African American GFR(CKD) 73.6 (60.0-200.0); Potassium 4.5 mmol/L (3.5-5.5); Total Bilirubin 0.6 mg/dL (0.2-1.2); Total Protein 6.7 g/dL (6.2-8.2)
[2020-10-15 12:03] LABS: Prostate Specific Antigen 2.6 ng/mL (0.0-3.5); T4, Free (Free Thyroxine) 1.3 ng/dL (0.80-1.80)
[2020-10-17 00:45] LABS: Hemoglobin A1C 7.4 % (4.0-6.0)
== END | disposition home or self-care (01) ==
LOC: LABWHC1 06:53
PROVIDERS: ATTEND Family Medicine
DX: Z12.5 Encounter for screening for malignant neoplasm of prostate (principal); Z11.59 Encounter for screening for other viral diseases; R73.9 Hyperglycemia, unspecified; E78.5 Hyperlipidemia, unspecified
CPT/HCPCS: 36415; 80053; 80061; 83036; 84153; 84439; 84443; 85025; 86803

== ENCOUNTER 2021-03-18 08:12 | Day surgery (SDC) | payer OTHER ==
[2021-03-13 09:35] VITALS: BMI 35.2
[~2021-03-18 08:12] MED LIST changes: -DEXAMETHASONE SOD PHOSPHATE 10 MG/ML 1 ML VIAL IV ONE; -HYDROmorphone 0.5 MG/0.5 ML SYRINGE IVP PRN; +LIDOCAINE 1% (10MG/ML) FOR IV START INTRADERMA PRN; -LIDOCAINE 1% 20 ML VIAL (10MG/ML) FOR IV START INTRADERMA PRN; -ONDANSETRON 4 MG/2 ML VIAL IVP ONE; -SCOPOLAMINE 1.5MG/72HR PATCH TRANSDERM ONE
[2021-03-18 08:30] VITALS: RESP 18; TEMP 97.9
--- NOTE | 2021-03-18 09:05 | P.GSHP ---
History of Present Illness H&P Date: 03/18/21 CHIEF COMPLAINT: Colon screen HISTORY OF PRESENT ILLNESS: The patient is a 60-year-old male who presents for colon screen. Lower endoscopy was offered for further evaluation and management. PAST MEDICAL HISTORY: Please see list. PAST SURGICAL HISTORY: Please see list. MEDICATIONS: Please see list. ALLERGIES: Please see list. SOCIAL HISTORY: No illicit drug use FAMILY HISTORY: No reports of Crohn disease or ulcerative colitis. REVIEW OF ORGAN SYSTEMS: CONSTITUTIONAL: No reports of fevers or chills. PHYSICAL EXAM: VITAL SIGNS: Stable GENERAL: Well-developed pleasant in no acute distress. HEENT: No scleral icterus. Extraocular movements grossly intact. Moist buccal mucosa. NECK: Supple without lymphadenopathy. CHEST: Unlabored respirations. Equal bilateral excursions. CARDIOVASCULAR: Regular rate and rhythm. Distal 2+ pulses. ABDOMEN: Soft, nontender, nondistended. MUSCULOSKELETAL: No clubbing, cyanosis, or edema. ASSESSMENT: 1. Colon screen. PLAN: 1. 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, hx skin cancer History of Any Multi-Drug Resistant Organisms: None Reported Past Surgical History: Bowel Resection, Hernia Repair Additional Past Surgical History / Comment(s): skin lesion removal, colonoscopy, PORT A CATH, port a cath removed, ventral hernia repair Past Anesthesia/Blood Transfusion Reactions: No Reported Reaction, Postoperative Nausea & Vomiting (PONV) Additional Past Anesthesia/Blood Transfusion Reaction / Comment(s): gagging after 1st colonoscopy Smoking Status: Never smoker - Past Family History Mother Family Medical History: No Reported History Medications and Allergies Home Medications Medication Instructions Recorded Confirmed Type Rosuvastatin Calcium [Crestor] 40 mg PO QAM 01/13/14 03/18/21 History lisinopriL [Zestril] 10 mg PO QAM 01/13/14 03/18/21 History Atenolol/Chlorthalidone 0.5 tab PO QAM 08/31/03/18/21 History [Atenolol-Chlorthalidone 100-25] Cholecalciferol [Vitamin D3 (25 50 mcg PO DAILY 03/13/21 03/18/21 History Mcg = 1000 Iu)] Multivitamins, Thera [Multivitamin 1 tab PO DAILY 03/13/21 03/18/21 History (formulary)] Allergies Allergy/AdvReac Type Severity Reaction Status Date / Time tape AdvReac Mild Rash/Hives Uncoded 03/18/21 08:23 Surgical - Exam Vital Signs Temp Pulse Resp BP Pulse Ox 97.9 F 68 18 146/80 98 03/18/21 08:28 03/18/21 08:28 03/18/21 08:28 03/18/21 08:28 03/18/21 08:28
[2021-03-18] MEDS ORDERED: PROPOFOL 10 MG/ML 20 ML VIAL IV ONE (09:08)
--- NOTE | 2021-03-18 09:26 | P.PCN ---
Date of Procedure: 03/18/21 Description of Procedure: PREOPERATIVE DIAGNOSIS: Personal history malignant colon cancer POSTOPERATIVE DIAGNOSIS: Personal history malignant colon cancer OPERATION: Colonoscopy to the cecum, ileocecal valve and appendiceal orifice. SURGEON: Rashmi Quintanilla MD. ANESTHESIA: MAC. INDICATIONS: The patient is a 60-year-old male who presents for colonoscopy screening and personal history malignant colon cancer. Last colonoscopy 3 years ago. Benefits and risks were described and informed consent was obtained. DESCRIPTION OF PROCEDURE: The patient had undergone Sutab prep. The patient had been brought into the operating room and laid in the left lateral decubitus position. After adequate intravenous sedation, the rectum was examined with 2% lidocaine jelly. No external hemorrhoids were encountered. The rectal tone was within normal limits. No lesions were palpated in the rectal vault. An Olympus colonoscope was advanced until the cecum, ileocecal valve and appendiceal orifice were clearly viewed. The prep was good. No scattered diverticulosis was encountered. No colonic polyps were found. No evidence of focal colitis was found. Retroflexion of the scope demonstrated grade 1 internal hemorrhoids without active bleeding or inflammation. The colon was desufflated. The patient had tolerated the procedure well. Withdrawal time was over 6 minutes. FINDINGS: Aronchick preparation quality scale 2 (1-5) Internal hemorrhoids, grade 1 No external prolapsed hemorrhoids. No arteriovenous malformations. No adenomatous polyps. No focal colitis. RECOMMENDATIONS: Lower endoscopy in one year, 2021 Plan - Discharge Summary Discharge Rx Participant: No New Discharge Prescriptions: Continue Rosuvastatin Calcium [Crestor] 40 mg PO QAM lisinopriL [Zestril] 10 mg PO QAM Atenolol/Chlorthalidone [Atenolol/Chlorthalidone 100-25] 0.5 tab PO QAM Multivitamins, Thera [Multivitamin (formulary)] 1 tab PO DAILY Cholecalciferol [Vitamin D3 (25 Mcg = 1000 Iu)] 50 mcg PO DAILY Discharge Medication List Rosuvastatin Calcium [Crestor] 40 mg PO QAM 01/13/14 [History] lisinopriL [Zestril] 10 mg PO QAM 01/13/14 [History] Atenolol/Chlorthalidone [Atenolol/Chlorthalidone 100-25] 0.5 tab PO QAM 05/14/15 [History] Cholecalciferol [Vitamin D3 (25 Mcg = 1000 Iu)] 50 mcg PO DAILY 03/13/21 [History] Multivitamins, Thera [Multivitamin (formulary)] 1 tab PO DAILY 03/13/21 [History] Follow up Appointment(s)/Referral(s): Rashmi Quintanilla MD [STAFF PHYSICIAN] - As Needed Patient Instructions/Handouts: *[facility] - (Anesthesia) Endoscopy Discharge Instructions, Colonoscopy (DC) Activity/Diet/Wound Care/Special Instructions: Repeat colonoscopy 1 year, 2021 Discharge Disposition: HOME SELF-CARE
[2021-03-18 10:01] VITALS: BP 163/102; PULSE 74
== END 2021-03-18 10:13 | disposition home or self-care (01) ==
LOC: ORWHC2ENDO 08:12
PROVIDERS: ATTEND Surgery Plastic and Reconstructive Surgery
DX: Z12.11 Encounter for screening for malignant neoplasm of colon (principal); K64.0 First degree hemorrhoids; E78.5 Hyperlipidemia, unspecified; I10 Essential (primary) hypertension; Z85.038 Personal history of other malignant neoplasm of large intestine; Z92.21 Personal history of antineoplastic chemotherapy; G62.2 Polyneuropathy due to other toxic agents; Z79.899 Other long term (current) drug therapy; Z91.09 Other allergy status, other than to drugs and biological substances
CPT/HCPCS: G0105; J2704; 45378

== ENCOUNTER → 2024-11-14 | Outpatient (CLI) | payer BC ==
--- NOTE | 2024-11-14 16:24 | MR ---
EXAMINATION TYPE: MR Prostate wo/w con DATE OF EXAM: 11/14/2024 6:43 AM COMPARISON: None. CLINICAL INDICATION: Male, 64 years old with history of R97.20 ELEVATED PSA; Elevated PSA. TECHNIQUE: Multi-planar, multi-sequence imaging of the pelvis is performed prior to and following the uncomplicated administration of bolus intravenous gadolinium. IV Contrast: 12 mL Gadobutrol Interpretive Criteria: PI-RADS v2.1 SERUM PSA: 08-31-24 = 6.55 -01-11 = 5.33 SURGICAL PATHOLOGY: No data available. FINDINGS: Prostatic dimensions: 6.7 x 7.3 x 5.2 cm. Ellipsoid Volume:133.17 (PSA density=0.05 ng/mL/mL) CENTRAL GLAND (Central and Transition Zones/CZ+TZ): Multiple bilateral, heterogenous appearing hypertrophic stromal nodules, without suspicious lesion. M edian lobe hypertrophy with protrusion into the base of the bladder. There is a BPH nodule just left of midline series 501 image 17 which demonstrates her DWI or ADC signal. This is clearly circumscrib ed however. (PI-RADS 2) PERIPHERAL ZONE (PZ): Bilateral linear, indistinct wedgelike areas of low ADC, and low T2 signal, No evidence of masslike a bnormality, or localized perfusional hypervascularity, to further suggest a focus of clinically signi ficant prostate cancer. (PI-RADS 2) SEMINAL VESICLES (SV): Symmetric and unremarkable. PERIPROSTATIC TISSUES: Unremarkable. LYMPH NODES: No enlarged pelvic lymph node. REMAINING PELVIS: Circumferential bladder wall thickening with trabeculations likely secondary to chronic bladder outfl ow obstruction. No abnormal free or organized intrapelvic fluid collection. No pathologic bowel dilation or mural thickening. No hernia visualized OSSEOUS STRUCTURES: No suspicious osseous abnormality. IMPRESSION: 1. No specific features for high-risk prostate cancer. Maximum PI-RADS score: 2. 2. Substantial BPH, estimated gland volume 133.17 mL (PSA density=0.05 ng/mL/mL) 3. No suspicious osseous lesion. No lymphadenopathy. No evidence of prostate adenocarcinoma involving the periprostatic tissues. [facility], , 11/14/2024 4:22 PM
== END | disposition home or self-care (01) ==
LOC: RADMRIMAIN 05:43
PROVIDERS: ATTEND Urology
DX: N40.0 Benign prostatic hyperplasia without lower urinary tract symptoms (principal); R97.20 Elevated prostate specific antigen [PSA]
CPT/HCPCS: 72197; A9585